=== PATIENT | female | born 1975 ===

== ENCOUNTER 2020-03-24 17:08 | Outpatient (CLI) | payer OTHER ==
[2020-03-24 17:31] VITALS: BP 122/74
[2020-03-24 19:17] LABS: Basophils % (Auto) 0.4 % (0.0-1.8); Eosinophils # (Auto) 0.1 K/mm3 (0.0-0.4); Eosinophils % (Auto) 0.9 % (0.0-4.3); Hematocrit 38.1 % (30.3-42.9); Lymphocytes # (Auto) 1.7 K/mm3 (1.2-5.4); Lymphocytes % (Auto) 16.3 % (13.4-35.0); Mean Corpuscular HGB Conc 34 % (30-34); Mean Corpuscular Volume 90 fl (79-97); Monocytes # (Auto) 0.6 K/mm3 (0.0-0.8); Monocytes % (Auto) 5.6 % (0.0-7.3); Platelet Count 325 K/mm3 (140-440); Red Blood Count 4.23 M/mm3 (3.65-5.03); Red Cell Distribution Width 14.3 % (13.2-15.2)
[2020-03-24 19:41] LABS: Alanine Aminotransferase 14 units/L (7-56); Albumin 3.4 g/dL (3.9-5); BUN/Creatinine Ratio 23; Blood Urea Nitrogen 7 mg/dL (7-17); Calcium 9.6 mg/dL (8.4-10.2); Hemolysis Index 4
== END 2020-03-24 18:50 | disposition home or self-care (01) ==
LOC: APU 17:08 → TRG 17:08
PROVIDERS: ATTEND Obstetrics & Gynecology
DX: O13.2 Gestational [pregnancy-induced] hypertension without significant proteinuria, second trimester (principal); Z3A.26 26 weeks gestation of pregnancy
CPT/HCPCS: 36415; 59025; 80053; 84436; 84443; 85025

== ENCOUNTER 2020-06-15 08:44 | Inpatient (IN) | payer OTHER ==
--- NOTE | 2020-06-15 10:44 | History and Physical Report ---
History of Present Illness Date of examination: 06/15/20 Date of admission: 06/15/20 08:46 Chief complaint: Presents for a scheduled induction of labor History of present illness: Early entry to care, co-managed with [facility] due to AMA. course complicated by being a Carrier for Spinal Muscular Atrophy (partner is negative); and Polyhydramnios. 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 Family/Genetic History: none Social history: no significant social history, single - Obstetrical History Expected Date of Delivery: 06/21/20 Actual Gestation: 39 Week(s) 1 Day(s) : 6 Para: 5 Hx # Term Pregnancies: 5 Number of Living Children: 5 #1 Gender: Male year: 1,996 Method of Delivery: Vaginal Gestational age at delivery: 40 #2 Infant Gender: Male year: ,001 Method of Delivery: Vaginal Gestational age at delivery: 41 Complications: none #3 Infant Gender: Male year: ,003 Method of Delivery: Vaginal Gestational age at delivery: 39 #4 Gender: Male year: ,008 Method of Delivery: Vaginal Gestational age at delivery: 41 Complications: none #5 Gender: Male year: 2,009 Method of Delivery: Vaginal Gestational age at delivery: 37 Medications and Allergies Allergies Allergy/AdvReac Type Severity Reaction Status Date / Time No Known Allergies Allergy Verified 06/15/20 09:25 Home Medications Medication Instructions Recorded Confirmed Last Taken Type Docusate Sodium [Colace] 100 mg PO BID 06/15/20 06/15/20 06/15/20 08:00 History Vit-Fe Fumar-FA [ 1 tab PO QDAY 06/15/20 06/15/20 06/15/20 08:00 History Vitamin] Active Meds: Active Medications Acetaminophen (Tylenol) 650 mg PO Q4H PRN PRN Reason: Pain, Mild (1-3) Butorphanol Tartrate (Stadol) 2 mg IV Q2H PRN PRN Reason: Pain , Severe (7-10) Dinoprostone (Cervidil) 10 mg VG ONCE ONE Stop: 06/15/20 10:34 Ephedrine Sulfate (Ephedrine Sulfate) 10 mg IV Q2M PRN PRN Reason: Hypotension Lactated Ringer's (Lactated Ringers) 1,000 mls @ 125 mls/hr IV DIRECT DANY Oxytocin/Sodium Chloride (Pitocin/Ns 20 Unit/1000ml Drip) 20 units in 1,000 mls @ 125 mls/hr IV DIRECT DANY Ampicillin Sodium (Ampicillin/Ns 1 Gm/50 Ml) 1 gm in 50 mls @ 100 mls/hr IV Q4HR DANY; Protocol Ampicillin Sodium (Ampicillin/Ns 2 Gm/100 Ml) 2 gm in 100 mls @ 100 mls/hr IV ONCE ONE; Protocol Stop: 06/15/20 11:32 Lidocaine (Xylocaine 2%) 20 ml INFILTRATI ONCE ONE Stop: 06/15/20 10:34 Mineral Oil (Mineral Oil) 30 ml PO QHS PRN PRN Reason: Constipation Misoprostol (Cytotec) 1,000 mcg UT ONCE PRN PRN Reason: Uterine Bleeding Naloxone HCl (Naloxone) 0.1 mg IV Q2MIN PRN PRN Reason: Res Rate </= 8 or 02 SAT < 92% Terbutaline Sulfate (Brethine) 0.25 mg SUB-Q ONCE PRN PRN Reason: Hyperstimulation/Hypertonicity Review of Systems All systems: negative - Vital Signs Vital signs: Vital Signs Temp Pulse BP 99.7 F H 88 129/74 06/15/20 09:25 06/15/20 09:25 06/15/20 09:25 Temp Pulse Resp BP Pulse Ox 99.7 F H 88 129/74 06/15/20 09:25 06/15/20 09:25 06/15/20 09:25 - Physical Exam Breasts: Positive: normal Cardiovascular: Regular rate Lungs: Positive: Clear to auscultation, Normal air movement Abdomen: Positive: normal appearance, soft, normal bowel sounds Genitourinary (Female): Positive: normal external genitalia, normal perenium Vagina: Positive: normal moisture Uterus: Positive: enlarged Anus/Rectum: Positive: normal perianal skin Extremities: Positive: normal - Obstetrical FHR: category 1 Uterine Contraction Monitor Mode: External Cervical Dilatation: 1 Cervical Effacement Percentage: 20 station: -3 Uterine Contraction Pattern: Absent Uterine Tone Measurement Phase: Resting Uterine Contraction Intensity: Mild Results All other labs normal. Assessment and Plan A: IUP @ 39 1/7 Weeks Category I Tracing AMA GBS Positive P: Admit to L&D Per Routine Orders Cervidil Induction GBS Prophylaxis
[2020-06-15] MEDS ORDERED: MINERAL OIL 30 ML ORAL LIQD PO PRN (11:00)
[2020-06-15] MEDS ORDERED: DINOPROSTONE 10 MG VAG SUPP VG SCH (11:30)
[2020-06-15] MEDS ORDERED: ACETAMINOPHEN 325 MG TAB PO PRN (11:30)
[2020-06-15] MEDS ORDERED: ePHEDrine SULFATE 50 MG/1 ML INJ IV PRN (11:30)
[2020-06-15] MEDS ORDERED: NALOXONE 0.4 MG/1 ML INJ IV PRN (11:30)
[2020-06-15] MEDS ORDERED: miSOPROStol 200 MCG TAB PR PRN (11:30)
[2020-06-15] MEDS ORDERED: LIDOCAINE (2%) 20 MG/1 ML VIAL 20 ML MDV INFILTRATI SCH (11:30)
[2020-06-15] MEDS ORDERED: TERBUTALINE 1 MG/1 ML INJ SUB-Q PRN (11:30)
[2020-06-15] MEDS ORDERED: BUTORPHANOL 2 MG/1 ML INJ IV PRN (11:30)
[2020-06-15] MEDS ORDERED: AMPICILLIN/NS 2 GM/100 ML 2 GM/100 ML BAG IV ONE (12:00)
[2020-06-15 12:16] LABS: Hematocrit 39.8 % (30.3-42.9); Hemoglobin 13.5 gm/dl (10.1-14.3); Mean Corpuscular HGB Conc 34 % (30-34); Mean Corpuscular Volume 92 fl (79-97); Platelet Count 316 K/mm3 (140-440); Red Blood Count 4.31 M/mm3 (3.65-5.03); Red Cell Distribution Width 14.1 % (13.2-15.2)
[2020-06-15] MEDS: LACTATED RINGERS 1,000 ML IV SCH (12:37)
[2020-06-15] MEDS: AMPICILLIN/NS 1 GM/50 ML 1 GM/50 ML BAG IV SCH ×2 (16:20→20:18)
--- NOTE | 2020-06-16 00:51 | Progress Note ---
Assessment and Plan A: IUP @ 39 2/7 Weeks Category I Tracing AMA GBS Positive P: Cervidil Removed Cook's Cervical Ripening Balloon Palced Continue GBS Prophylaxis Start Low-Dose Pitocin Subjective - Subjective Date of service: 06/16/20 Interval history: Early entry to care, co-managed with [facility] due to AMA. course complicated by being a Carrier for Spinal Muscular Atrophy (partner is negative); and Polyhydramnios. Patient reports: movement normal Objective - Vital Signs Vital Signs: Vital Signs - 12hr 06/15/20 06/15/20 06/15/20 13:14 13:51 15:15 Temperature 99.5 F Pulse Rate 83 78 Respiratory Rate Blood Pressure 99/58 100/59 Blood Pressure [Right] O2 Sat by Pulse Oximetry 06/15/20 06/15/20 06/15/20 16:14 16:25 17:25 Temperature 98.4 F Pulse Rate 81 78 Respiratory Rate Blood Pressure 98/58 114/77 Blood Pressure [Right] O2 Sat by Pulse Oximetry 06/15/20 06/15/20 06/15/20 17:27 17:32 17:37 Temperature Pulse Rate 84 84 80 Respiratory Rate Blood Pressure Blood Pressure [Right] O2 Sat by Pulse 99 100 100 Oximetry 06/15/20 06/15/20 06/15/20 17:42 17:47 17:52 Temperature Pulse Rate 84 76 80 Respiratory Rate Blood Pressure Blood Pressure [Right] O2 Sat by Pulse 100 100 100 Oximetry 06/15/20 06/15/20 06/15/20 17:57 18:02 18:07 Temperature Pulse Rate 80 76 82 Respiratory Rate Blood Pressure Blood Pressure [Right] O2 Sat by Pulse 99 98 98 Oximetry 06/15/20 06/15/20 06/15/20 18:12 18:15 18:17 Temperature Pulse Rate 83 75 80 Respiratory Rate Blood Pressure 105/68 Blood Pressure [Right] O2 Sat by Pulse 98 99 Oximetry 06/15/20 06/15/20 06/15/20 18:22 18:27 18:32 Temperature Pulse Rate 80 79 83 Respiratory Rate Blood Pressure Blood Pressure [Right] O2 Sat by Pulse 99 99 99 Oximetry 06/15/20 06/15/20 06/15/20 18:37 18:42 18:47 Temperature Pulse Rate 79 77 80 Respiratory Rate Blood Pressure Blood Pressure [Right] O2 Sat by Pulse 100 99 99 Oximetry 06/15/20 06/15/20 06/15/20 18:52 18:57 19:02 Temperature Pulse Rate 81 85 78 Respiratory Rate Blood Pressure Blood Pressure [Right] O2 Sat by Pulse 98 99 99 Oximetry 06/15/20 06/15/20 06/15/20 19:07 19:12 19:15 Temperature Pulse Rate 82 75 75 Respiratory Rate Blood Pressure 118/74 Blood Pressure [Right] O2 Sat by Pulse 99 99 Oximetry 06/15/20 06/15/20 06/15/20 19:17 19:22 19:27 Temperature Pulse Rate 88 77 78 Respiratory Rate Blood Pressure Blood Pressure [Right] O2 Sat by Pulse 98 98 98 Oximetry 06/15/20 06/15/20 06/15/20 19:32 19:37 19:42 Temperature Pulse Rate 75 77 85 Respiratory Rate Blood Pressure Blood Pressure [Right] O2 Sat by Pulse 98 99 99 Oximetry 06/15/20 06/15/20 06/15/20 19:47 19:52 19:57 Temperature Pulse Rate 77 75 88 Respiratory Rate Blood Pressure Blood Pressure [Right] O2 Sat by Pulse 98 100 99 Oximetry 06/15/20 06/15/20 06/15/20 20:02 20:07 20:21 Temperature 98.6 F Pulse Rate 82 77 76 Respiratory 16 Rate Blood Pressure Blood Pressure 113/71 [Right] O2 Sat by Pulse 99 99 98 Oximetry 06/15/20 06/15/20 06/15/20 20:22 20:26 20:31 Temperature Pulse Rate 77 82 74 Respiratory Rate Blood Pressure 113/71 Blood Pressure [Right] O2 Sat by Pulse 98 98 Oximetry 06/15/20 06/15/20 06/15/20 20:36 20:41 20:46 Temperature Pulse Rate 77 84 86 Respiratory Rate Blood Pressure Blood Pressure [Right] O2 Sat by Pulse 98 99 97 Oximetry 06/15/20 06/15/20 06/15/20 20:51 20:56 21:01 Temperature Pulse Rate 81 89 98 H Respiratory Rate Blood Pressure Blood Pressure [Right] O2 Sat by Pulse 100 98 99 Oximetry 06/15/20 06/15/20 06/15/20 21:06 21:11 21:16 Temperature Pulse Rate 83 86 84 Respiratory Rate Blood Pressure 119/63 Blood Pressure [Right] O2 Sat by Pulse 98 98 98 Oximetry 06/15/20 06/15/20 06/15/20 21:21 21:26 21:31 Temperature Pulse Rate 74 79 83 Respiratory Rate Blood Pressure Blood Pressure [Right] O2 Sat by Pulse 98 98 98 Oximetry 06/15/20 06/15/20 06/15/20 21:36 21:41 21:46 Temperature Pulse Rate 83 79 77 Respiratory Rate Blood Pressure Blood Pressure [Right] O2 Sat by Pulse 98 97 97 Oximetry 06/15/20 06/15/20 06/15/20 21:51 21:56 22:01 Temperature Pulse Rate 75 76 79 Respiratory Rate Blood Pressure Blood Pressure [Right] O2 Sat by Pulse 97 97 98 Oximetry 06/15/20 06/15/20 06/15/20 22:06 22:11 22:16 Temperature Pulse Rate 79 84 82 Respiratory Rate Blood Pressure 135/67 Blood Pressure [Right] O2 Sat by Pulse 97 97 100 Oximetry 06/15/20 06/15/20 06/15/20 22:21 22:26 22:31 Temperature Pulse Rate 79 71 73 Respiratory Rate Blood Pressure Blood Pressure [Right] O2 Sat by Pulse 99 99 98 Oximetry 06/15/20 06/15/20 06/15/20 22:36 22:41 22:46 Temperature Pulse Rate 71 70 70 Respiratory Rate Blood Pressure Blood Pressure [Right] O2 Sat by Pulse 97 98 97 Oximetry 06/15/20 06/15/20 06/15/20 22:51 22:56 23:01 Temperature Pulse Rate 74 73 71 Respiratory Rate Blood Pressure Blood Pressure [Right] O2 Sat by Pulse 97 97 97 Oximetry 06/15/20 06/15/20 06/15/20 23:06 23:11 23:14 Temperature Pulse Rate 75 84 74 Respiratory Rate Blood Pressure 103/65 Blood Pressure [Right] O2 Sat by Pulse 97 97 Oximetry 06/15/20 06/15/20 06/15/20 23:16 23:21 23:26 Temperature Pulse Rate 82 74 87 Respiratory Rate Blood Pressure Blood Pressure [Right] O2 Sat by Pulse 98 98 98 Oximetry 06/15/20 06/15/20 06/15/20 23:31 23:39 23:44 Temperature Pulse Rate 80 79 80 Respiratory Rate Blood Pressure Blood Pressure [Right] O2 Sat by Pulse 99 100 99 Oximetry 06/15/20 06/15/20 06/15/20 23:49 23:54 23:59 Temperature Pulse Rate 77 82 78 Respiratory Rate Blood Pressure Blood Pressure [Right] O2 Sat by Pulse 99 99 100 Oximetry 06/16/20 06/16/20 06/16/20 00:04 00:09 00:14 Temperature Pulse Rate 74 72 72 Respiratory Rate Blood Pressure 110/59 Blood Pressure [Right] O2 Sat by Pulse 99 98 98 Oximetry 06/16/20 06/16/20 06/16/20 00:19 00:24 00:29 Temperature Pulse Rate 86 82 81 Respiratory Rate Blood Pressure Blood Pressure [Right] O2 Sat by Pulse 99 99 100 Oximetry 06/16/20 06/16/20 06/16/20 00:34 00:39 00:44 Temperature Pulse Rate 81 85 88 Respiratory Rate Blood Pressure Blood Pressure [Right] O2 Sat by Pulse 99 98 98 Oximetry - Exam Breasts: normal Cardiovascular: Regular rate Lungs: Clear to auscultation, Normal air movement Abdomen: Present: normal appearance, soft Uterus: Present: normal, firm, fundal height above umbilicus FHR: category 1 Uterine Contraction Monitor Mode: External Cervical Dilatation: 2 Cervical Effacement Percentage: 40 station: -3 Uterine Contraction Pattern: Irregular Uterine Tone Measurement Phase: Resting Uterine Contraction Intensity: Mild Extremities: normal - Labs Labs: Abnormal Labs 06/15/20 12:00 WBC 11.5 H Laboratory Results - last 24 hr 06/15/20 06/15/20 12:00 12:00 WBC 11.5 H RBC 4.31 Hgb 13.5 Hct 39.8 MCV 92 MCH 31 MCHC 34 RDW 14.1 Plt Count 316 Blood Type A POSITIVE Antibody Screen Negative
[2020-06-16] MEDS: AMPICILLIN/NS 1 GM/50 ML 1 GM/50 ML BAG IV SCH ×3 (01:20→18:42)
[2020-06-16] MEDS ORDERED: OXYTOCIN DRIP 30,000 MILLIUNITS/500 ML BAG IV ONE (02:05)
[2020-06-16] MEDS ORDERED: OXYTOCIN DRIP 30 UNITS/500 ML BAG IV SCH (02:10)
[2020-06-16] MEDS: LACTATED RINGERS 1,000 ML IV SCH ×2 (05:36→17:28)
--- NOTE | 2020-06-16 09:01 | Progress Note ---
Assessment and Plan A: IUP@ 39.2 wks AMA. + GBS Polyhydramnios p: Continue monitoring Continue GBS prophylaxis AROM (clear fluid) Anticipate Subjective - Subjective Date of service: 06/16/20 Principal diagnosis: IUP @ 39.2 wks Patient reports: movement normal Objective - Vital Signs Vital Signs: Vital Signs - 12hr 06/15/20 06/15/20 06/15/20 20:56 21:01 21:06 Temperature Pulse Rate 89 98 H 83 Respiratory Rate Blood Pressure O2 Sat by Pulse 98 99 98 Oximetry 06/15/20 06/15/20 06/15/20 21:11 21:16 21:21 Temperature Pulse Rate 86 84 74 Respiratory Rate Blood Pressure 119/63 O2 Sat by Pulse 98 98 98 Oximetry 06/15/20 06/15/20 06/15/20 21:26 21:31 21:36 Temperature Pulse Rate 79 83 83 Respiratory Rate Blood Pressure O2 Sat by Pulse 98 98 98 Oximetry 06/15/20 06/15/20 06/15/20 21:41 21:46 21:51 Temperature Pulse Rate 79 77 75 Respiratory Rate Blood Pressure O2 Sat by Pulse 97 97 97 Oximetry 06/15/20 06/15/20 06/15/20 21:56 22:01 22:06 Temperature Pulse Rate 76 79 79 Respiratory Rate Blood Pressure O2 Sat by Pulse 97 98 97 Oximetry 06/15/20 06/15/20 06/15/20 22:11 22:16 22:21 Temperature Pulse Rate 84 82 79 Respiratory Rate Blood Pressure 135/67 O2 Sat by Pulse 97 100 99 Oximetry 06/15/20 06/15/20 06/15/20 22:26 22:31 22:36 Temperature Pulse Rate 71 73 71 Respiratory Rate Blood Pressure O2 Sat by Pulse 99 98 97 Oximetry 06/15/20 06/15/20 06/15/20 22:41 22:46 22:51 Temperature Pulse Rate 70 70 74 Respiratory Rate Blood Pressure O2 Sat by Pulse 98 97 97 Oximetry 06/15/20 06/15/20 06/15/20 22:56 23:01 23:06 Temperature Pulse Rate 73 71 75 Respiratory Rate Blood Pressure O2 Sat by Pulse 97 97 97 Oximetry 06/15/20 06/15/20 06/15/20 23:11 23:14 23:16 Temperature Pulse Rate 84 74 82 Respiratory Rate Blood Pressure 103/65 O2 Sat by Pulse 97 98 Oximetry 06/15/20 06/15/20 06/15/20 23:21 23:26 23:31 Temperature Pulse Rate 74 87 80 Respiratory Rate Blood Pressure O2 Sat by Pulse 98 98 99 Oximetry 06/15/20 06/15/20 06/15/20 23:39 23:44 23:49 Temperature Pulse Rate 79 80 77 Respiratory Rate Blood Pressure O2 Sat by Pulse 100 99 99 Oximetry 06/15/20 06/15/20 06/16/20 23:54 23:59 00:04 Temperature Pulse Rate 82 78 74 Respiratory Rate Blood Pressure O2 Sat by Pulse 99 100 99 Oximetry 06/16/20 06/16/20 06/16/20 00:09 00:14 00:19 Temperature Pulse Rate 72 72 86 Respiratory Rate Blood Pressure 110/59 O2 Sat by Pulse 98 98 99 Oximetry 06/16/20 06/16/20 06/16/20 00:24 00:29 00:34 Temperature Pulse Rate 82 81 81 Respiratory Rate Blood Pressure O2 Sat by Pulse 99 100 99 Oximetry 06/16/20 06/16/20 06/16/20 00:39 00:44 00:49 Temperature Pulse Rate 85 88 80 Respiratory Rate Blood Pressure O2 Sat by Pulse 98 98 99 Oximetry 06/16/20 06/16/20 06/16/20 00:54 00:59 01:04 Temperature Pulse Rate 83 78 82 Respiratory Rate Blood Pressure O2 Sat by Pulse 99 98 98 Oximetry 06/16/20 06/16/20 06/16/20 01:09 01:14 01:19 Temperature Pulse Rate 77 85 74 Respiratory Rate Blood Pressure O2 Sat by Pulse 99 100 100 Oximetry 06/16/20 06/16/20 06/16/20 01:24 01:29 01:34 Temperature Pulse Rate 81 74 76 Respiratory Rate Blood Pressure O2 Sat by Pulse 100 99 99 Oximetry 06/16/20 06/16/20 06/16/20 01:39 01:44 01:49 Temperature Pulse Rate 74 75 75 Respiratory Rate Blood Pressure O2 Sat by Pulse 99 99 99 Oximetry 06/16/20 06/16/20 06/16/20 01:54 01:59 02:04 Temperature Pulse Rate 77 77 73 Respiratory Rate Blood Pressure O2 Sat by Pulse 99 99 100 Oximetry 06/16/20 06/16/20 06/16/20 02:09 02:14 02:15 Temperature Pulse Rate 76 75 70 Respiratory Rate Blood Pressure 113/81 O2 Sat by Pulse 99 98 Oximetry 06/16/20 06/16/20 06/16/20 02:30 02:35 02:40 Temperature Pulse Rate 71 73 78 Respiratory Rate Blood Pressure O2 Sat by Pulse 98 97 98 Oximetry 06/16/20 06/16/20 06/16/20 02:45 02:50 02:55 Temperature Pulse Rate 75 83 72 Respiratory Rate Blood Pressure O2 Sat by Pulse 98 98 98 Oximetry 06/16/20 06/16/20 06/16/20 03:00 03:05 03:10 Temperature Pulse Rate 68 72 80 Respiratory Rate Blood Pressure O2 Sat by Pulse 97 98 99 Oximetry 06/16/20 06/16/20 06/16/20 03:14 03:15 03:22 Temperature Pulse Rate 76 81 75 Respiratory Rate Blood Pressure 106/67 O2 Sat by Pulse 98 100 Oximetry 06/16/20 06/16/20 06/16/20 03:27 03:32 03:37 Temperature Pulse Rate 68 76 82 Respiratory Rate Blood Pressure O2 Sat by Pulse 99 99 97 Oximetry 06/16/20 06/16/20 06/16/20 03:42 03:47 03:52 Temperature Pulse Rate 76 91 H 79 Respiratory Rate Blood Pressure O2 Sat by Pulse 100 99 100 Oximetry 06/16/20 06/16/20 06/16/20 03:57 04:02 04:07 Temperature Pulse Rate 80 78 76 Respiratory Rate Blood Pressure O2 Sat by Pulse 100 100 100 Oximetry 06/16/20 06/16/20 06/16/20 04:12 04:14 04:17 Temperature Pulse Rate 77 67 67 Respiratory Rate Blood Pressure 110/71 O2 Sat by Pulse 99 99 Oximetry 06/16/20 06/16/20 06/16/20 04:22 04:27 04:32 Temperature Pulse Rate 69 76 86 Respiratory Rate Blood Pressure O2 Sat by Pulse 99 99 98 Oximetry 06/16/20 06/16/20 06/16/20 04:35 04:37 04:42 Temperature Pulse Rate 70 70 Respiratory 20 Rate Blood Pressure O2 Sat by Pulse 98 94 Oximetry 06/16/20 06/16/20 06/16/20 04:46 04:47 04:52 Temperature Pulse Rate 66 65 64 Respiratory Rate Blood Pressure O2 Sat by Pulse 94 95 96 Oximetry 06/16/20 06/16/20 06/16/20 04:54 04:57 05:01 Temperature Pulse Rate 64 70 71 Respiratory Rate Blood Pressure O2 Sat by Pulse 94 96 94 Oximetry 06/16/20 06/16/20 06/16/20 05:02 05:07 05:12 Temperature Pulse Rate 61 65 68 Respiratory Rate Blood Pressure O2 Sat by Pulse 96 95 96 Oximetry 06/16/20 06/16/20 06/16/20 05:14 05:17 05:20 Temperature Pulse Rate 68 67 79 Respiratory Rate Blood Pressure 108/65 O2 Sat by Pulse 95 92 Oximetry 06/16/20 06/16/20 06/16/20 05:22 05:27 05:32 Temperature Pulse Rate 62 68 67 Respiratory Rate Blood Pressure O2 Sat by Pulse 95 95 96 Oximetry 06/16/20 06/16/20 06/16/20 05:37 05:41 05:42 Temperature Pulse Rate 68 63 66 Respiratory Rate Blood Pressure O2 Sat by Pulse 97 94 96 Oximetry 06/16/20 06/16/20 06/16/20 05:47 05:50 05:52 Temperature Pulse Rate 71 72 67 Respiratory Rate Blood Pressure O2 Sat by Pulse 96 94 98 Oximetry 06/16/20 06/16/20 06/16/20 05:57 06:02 06:07 Temperature Pulse Rate 69 66 79 Respiratory Rate Blood Pressure O2 Sat by Pulse 96 96 96 Oximetry 06/16/20 06/16/20 06/16/20 06:12 06:15 06:17 Temperature Pulse Rate 71 74 69 Respiratory Rate Blood Pressure 112/62 O2 Sat by Pulse 96 100 Oximetry 06/16/20 06/16/20 06/16/20 06:22 06:27 06:32 Temperature Pulse Rate 69 74 65 Respiratory Rate Blood Pressure O2 Sat by Pulse 98 98 97 Oximetry 06/16/20 06/16/20 06/16/20 06:37 06:42 06:47 Temperature Pulse Rate 65 64 68 Respiratory Rate Blood Pressure O2 Sat by Pulse 97 97 99 Oximetry 06/16/20 06/16/20 06/16/20 06:52 06:57 07:02 Temperature Pulse Rate 68 71 75 Respiratory Rate Blood Pressure O2 Sat by Pulse 98 97 98 Oximetry 06/16/20 06/16/20 06/16/20 07:07 07:12 07:14 Temperature 98.6 F Pulse Rate 77 71 69 Respiratory Rate Blood Pressure 114/74 O2 Sat by Pulse 100 100 Oximetry 06/16/20 06/16/20 06/16/20 07:17 07:22 07:27 Temperature Pulse Rate 69 83 82 Respiratory Rate Blood Pressure O2 Sat by Pulse 100 98 99 Oximetry 06/16/20 06/16/20 06/16/20 07:32 07:37 07:42 Temperature Pulse Rate 62 62 68 Respiratory Rate Blood Pressure O2 Sat by Pulse 99 98 99 Oximetry 06/16/20 06/16/20 06/16/20 07:47 07:52 07:57 Temperature Pulse Rate 60 66 74 Respiratory Rate Blood Pressure O2 Sat by Pulse 98 99 98 Oximetry 06/16/20 06/16/20 06/16/20 08:02 08:08 08:13 Temperature Pulse Rate 71 76 73 Respiratory Rate Blood Pressure O2 Sat by Pulse 100 100 100 Oximetry 06/16/20 06/16/20 06/16/20 08:14 08:18 08:23 Temperature Pulse Rate 73 70 79 Respiratory Rate Blood Pressure 114/72 O2 Sat by Pulse 99 98 Oximetry 06/16/20 06/16/20 06/16/20 08:28 08:33 08:38 Temperature Pulse Rate 69 73 74 Respiratory Rate Blood Pressure O2 Sat by Pulse 99 99 99 Oximetry 06/16/20 06/16/20 06/16/20 08:43 08:48 08:53 Temperature Pulse Rate 72 77 77 Respiratory Rate Blood Pressure O2 Sat by Pulse 99 100 99 Oximetry - Exam Breasts: normal Abdomen: Present: normal appearance, soft, other (gravid) Vulva: both: normal Uterus: Present: normal, other (gravid) FHR: category 1 Uterine Contraction Monitor Mode: External Cervical Dilatation: 5 Cervical Effacement Percentage: 50 station: -3 Uterine Contraction Frequency (min): q5-6 Uterine Contraction Pattern: Regular Uterine Tone Measurement Phase: Resting Uterine Contraction Intensity: Strong/Firm Extremities: normal - Labs Labs: Abnormal Labs 06/15/20 12:00 WBC 11.5 H Laboratory Results - last 24 hr 06/15/20 06/15/20 12:00 12:00 WBC 11.5 H RBC 4.31 Hgb 13.5 Hct 39.8 MCV 92 MCH 31 MCHC 34 RDW 14.1 Plt Count 316 Blood Type A POSITIVE Antibody Screen Negative
[2020-06-16] MEDS ORDERED: ePHEDrine SULFATE 50 MG/1 ML INJ IV PRN (10:12)
[2020-06-16] MEDS ORDERED: NALOXONE 2 MG/2 ML INJ IV PRN (10:12)
--- NOTE | 2020-06-16 10:12 | Anesthesia Consultation ---
Anesthesia Consult and Med Hx Date of service: 06/16/20 - Airway Anesthetic Teeth Evaluation: Good ROM Head & Neck: Adequate Mental/Hyoid Distance: Adequate Mallampati Class: Class II Intubation Access Assessment: Probably Good - Pulmonary Exam CTA: Yes - Cardiac Exam Cardiac Exam: RRR - Pre-Operative Health Status ASA Pre-Surgery Classification: ASA2 Proposed Anesthetic Plan: Epidural - Pulmonary Hx Asthma: No - Cardiovascular System Hx Hypertension: No - Central Nervous System Hx Seizures: No Hx Psychiatric Problems: No - Endocrine Hx Renal Disease: No Hx Hypothyroidism: No Hx Hyperthyroidism: No - Hematic Hx Anemia: No Hx Sickle Cell Disease: No - Other Systems Hx Alcohol Use: No
--- NOTE | 2020-06-16 11:12 | Progress Note ---
Labor Epidural - Labor Epidural Start Time: 11:05 Stop Time: 11:11 Performed by:: PEREZ MONTES Procedure: Patient is requesting epidural for labor pain. H&P, and labs reviewed. Procedure explained, questions answered, consent obtained. Patient in sitting position with blood pressure cuff and pulse ox on and working. Timeout performed immediately before start of procedure. Sterile betadine prep/drape. 3 mL 1% lidocaine skin wheal at L[3]-L[4]. 18-gauge Touhy epidural needle advanced to [id number] with saline at [7] cm. 27-gauge spinal needle advanced until clear, free-flowing CSF. Intrathecal dexmedetomidine [5] mcg administered and needle removed. Epidural catheter advanced to [12] cm, negative aspiration for blood and csf, negative test dose 3 ml 1.5% lidocaine with epinephrine. Sterile steri-strips and tegaderm applied, followed by tape reinforcement. Patient tolerated procedure well. Debbie PURCELL
[2020-06-16] MEDS: fentaNYL-BUPIV 2 MCG/ML-0.125% 200 MCG/100 ML BAG EPIDURAL SCH ×2 (13:54→21:10)
[2020-06-16] MEDS ORDERED: OXYTOCIN 10 UNIT/1 ML INJ ONE ×2 (21:07→21:09)
[2020-06-16] MEDS: OXYTOCIN 20 UNIT/1000ML DRIP 20 UNITS/1,000 ML BAG IV SCH ×2 (21:42→22:31)
[2020-06-16] MEDS ORDERED: ONDANSETRON 4 MG/2 ML INJ IV PRN (22:19)
[2020-06-16] MEDS ORDERED: diphenhydrAMINE 25 MG CAP PO PRN (22:19)
[2020-06-16] MEDS ORDERED: WITCH HAZEL/ GLYCERIN PAD TP PRN (22:19)
[2020-06-16] MEDS ORDERED: PROMETHAZINE 25 MG RECT SUPP PR PRN (22:19)
[2020-06-16] MEDS ORDERED: MAGNESIUM HYDROXIDE (MOM) ORAL LIQD UDC PO PRN (22:19)
[2020-06-16] MEDS ORDERED: PROMETHAZINE 25 MG TAB PO PRN (22:19)
[2020-06-16] MEDS ORDERED: LANOLIN/ZINC/DIMETHICONE (LANSINOH) 7 GM TP PRN (22:19)
--- NOTE | 2020-06-16 22:29 | Procedure Note ---
OB Delivery Note - Vaginal Delivery presentation: vertex Delivery position: OA Delivery induction: oxytocin Delivery augmentation: rupture of membranes, pitocin Delivery monitor: external FHT, external uterine, internal uterine Route of delivery: Delivery placenta: spontaneous Delivery cord: 3 umbilical vessels Episiotomy: none Delivery laceration: none Anesthesia: epidural Delivery comments: Called to rm and found pt fully dilated and pushing. of a viable live female infant in OA position. 's head and shoulders were delivered with ease. Baby was placed on mom's chest while being dried and stimulated. Delayed cord clamping x 90 sec then cord was clamped x 2 and cut by mom's niece. Afterwards infant was given to awaiting NICU nurse for an evaluation. 8/9. Spontaneous delivery of intact placenta with CVX3 noted. FF@ U1 with fundal massage and IV Pitocin. Exploration of tears revealed none. EBL 50cc. Mom and baby stable. wt 3434 Gms. - A at 1 minute: 8 at 5 minutes: 9 Gender: Female (FW 3434 Gms)
[2020-06-17] MEDS: IBUPROFEN 600 MG TAB PO SCH ×2 (07:51→23:52)
[2020-06-17] MEDS ORDERED: PRENATAL VIT27-FE FUMARATE-FOLIC ACID VIT TAB PO SCH (10:00)
--- NOTE | 2020-06-17 10:26 | Progress Note ---
Assessment and Plan - Patient Problems (1) Status post normal vaginal delivery Current Visit: Yes Status: Acute Plan to address problem: Continue routine PP orders Anticipate d/c home in AM F/U at office in 6 wks for routine PP visit Subjective - Subjective Date of service: 06/17/20 Principal diagnosis: S/P ; PPD #1 Interval history: See admission H & P; OB delivery summary and PP progress notes Patient reports: appetite normal, voiding normally, pain well controlled, flatus, ambulating normally [place]: doing well, bottle feeding (and ) Objective - Vital Signs Latest vital signs: Vital Signs Temp Pulse Resp BP BP Pulse Ox 06/17/20 08:48 97.6 F 77 18 102/68 99 06/17/20 05:55 97.5 F L 76 18 82/53 96 06/16/20 23:37 99.8 F H 96 H 20 103/63 98 06/16/20 23:08 100 H 98 06/16/20 23:05 100 H 97/68 06/16/20 23:03 100 H 98 06/16/20 22:58 105 H 97 06/16/20 22:53 99 H 97 06/16/20 22:50 98/62 06/16/20 22:48 96 H 93 06/16/20 22:43 92 H 99 06/16/20 22:38 95 H 99 06/16/20 22:35 90 108/57 06/16/20 22:33 89 98 06/16/20 22:28 87 98 06/16/20 22:23 87 99 06/16/20 22:21 88 102/59 06/16/20 22:18 57 L 100 06/16/20 22:16 94 H 92 06/16/20 22:13 84 99 06/16/20 22:08 106 H 96 06/16/20 22:07 95 H 92 06/16/20 22:03 83 100 06/16/20 22:00 99 H 94 06/16/20 21:58 89 98 06/16/20 21:53 102 H 98 06/16/20 21:51 88 115/69 06/16/20 21:48 91 H 98 06/16/20 21:43 86 99 06/16/20 21:39 92 H 89 06/16/20 21:38 93 H 100 09/10/20 21:34 88 92 09/10/20 21:33 82 100 09/10/20 21:28 89 100 09/10/20 21:27 85 92 09/1020 21:23 84 100 1020 21:18 89 98 /10/20 21:13 81 100 1020 21:08 70 100 1020 21:03 86 99 1020 20:58 91 H 100 1020 20:53 89 100 1020 20:48 79 90/53 100 1020 20:43 87 100 1020 20:38 84 97 10/20 20:33 86 99/55 100 1020 20:28 77 100 20 20:23 80 100 20 20:18 81 100 1020 20:17 81 105/63 091020 20:13 90 100 20 20:08 93 H 100 20 20:03 84 104/56 100 20 19:58 85 99 1020 19:53 86 100 20 19:49 93 H 101/58 20 19:48 85 99 1020 19:43 82 100 20 19:38 86 99 20 19:33 80 100/58 98 1020 19:28 88 99 1020 19:23 85 99 1020 19:18 86 103/57 99 1020 19:13 82 99 1020 19:08 87 99 1020 19:03 88 89/53 98 1020 18:58 82 99 /1020 18:53 85 100 /10/20 18:48 85 101/61 99 1020 18:43 81 100 1020 18:38 87 100 1020 18:33 82 100 1020 18:32 78 102/57 1020 18:28 89 100 1020 18:23 75 99 1020 18:18 82 100 1020 18:17 78 102/58 20 18:13 82 100 06/16/20 18:08 80 100 06/16/20 18:03 82 100 06/16/20 18:02 80 107/59 06/16/20 17:58 83 100 06/16/20 17:53 78 100 06/16/20 17:48 83 106/58 100 06/16/20 17:43 76 100 06/16/20 17:38 85 100 06/16/20 17:33 79 100 06/16/20 17:32 71 109/71 06/16/20 17:30 97.7 F 20 100 06/16/20 17:28 75 100 06/16/20 17:23 76 100 06/16/20 17:18 78 100 06/16/20 17:17 68 108/66 06/16/20 17:13 70 100 06/16/20 17:08 68 100 06/16/20 17:03 71 108/67 100 06/16/20 16:58 73 100 06/16/20 16:53 71 100 06/16/20 16:48 74 109/71 100 06/16/20 16:43 64 100 06/16/20 16:38 65 100 06/16/20 16:33 68 100 06/16/20 16:32 75 108/61 06/16/20 16:28 69 100 06/16/20 16:23 67 100 06/16/20 16:18 65 111/65 100 06/16/20 16:13 64 100 06/16/20 16:08 68 100 06/16/20 16:03 67 104/55 100 06/16/20 15:58 72 100 06/16/20 15:53 63 100 06/16/20 15:48 70 90/55 100 06/16/20 15:43 66 100 06/16/20 15:38 80 100 06/16/20 15:33 61 100 06/16/20 15:32 68 97/58 06/16/20 15:28 71 100 06/16/20 15:23 72 100 06/16/20 15:18 66 100 06/16/20 15:17 70 98/59 06/16/20 15:13 66 100 06/16/20 15:08 76 99 06/16/20 15:03 69 97/62 100 06/16/20 14:58 77 100 06/16/20 14:53 67 100 06/16/20 14:50 97.6 F 06/16/20 14:49 71 103/57 06/16/20 14:48 74 99 06/16/20 14:43 68 98 06/16/20 14:38 77 99 06/16/20 14:33 76 100 06/16/20 14:32 69 102/59 06/16/20 14:28 73 100 06/16/20 14:23 67 100 06/16/20 14:18 74 100 06/16/20 14:17 75 98/58 06/16/20 14:13 72 100 06/16/20 14:08 74 100 06/16/20 14:03 77 100 06/16/20 14:02 68 100/59 06/16/20 13:58 76 100 06/16/20 13:53 74 100 06/16/20 13:48 70 100 06/16/20 13:47 75 97/62 06/16/20 13:43 60 100 06/16/20 13:38 73 100 06/16/20 13:33 71 102/65 100 06/16/20 13:28 76 100 06/16/20 13:23 76 100 06/16/20 13:18 79 100 06/16/20 13:17 84 103/65 06/16/20 13:13 75 100 06/16/20 13:08 73 100 06/16/20 13:03 77 100 06/16/20 13:02 73 101/62 06/16/20 12:58 78 100 06/16/20 12:53 74 100 06/16/20 12:48 79 100 06/16/20 12:47 77 100/56 06/16/20 12:43 73 100 06/16/20 12:38 71 100 06/16/20 12:33 78 100 06/16/20 12:32 75 99/54 06/16/20 12:28 76 100 06/16/20 12:23 75 100 06/16/20 12:18 77 98/56 100 06/16/20 12:13 83 100 06/16/20 12:08 84 100 06/16/20 12:03 82 100 06/16/20 12:00 83 92/50 06/16/20 11:58 83 97/56 100 06/16/20 11:56 82 91/55 06/16/20 11:54 82 93/52 06/16/20 11:53 86 100 06/16/20 11:52 104 H 94/52 06/16/20 11:50 86 92/51 06/16/20 11:48 88 95/53 100 06/16/20 11:46 85 94/60 06/16/20 11:44 85 94/57 06/16/20 11:43 78 100 06/16/20 11:42 77 94/56 06/16/20 11:40 81 93/57 06/16/20 11:38 81 89/55 100 06/16/20 11:36 83 91/55 06/16/20 11:35 81 95/52 06/16/20 11:33 71 100 06/16/20 11:32 69 105/58 06/16/20 11:30 68 109/57 06/16/20 11:28 74 101/61 99 06/16/20 11:26 73 101/60 06/16/20 11:25 75 105/61 06/16/20 11:23 78 99 06/16/20 11:22 74 89/50 06/16/20 11:20 80 103/65 06/16/20 11:18 72 110/68 100 06/16/20 11:16 75 113/66 06/16/20 11:14 82 121/74 06/16/20 11:13 77 100 06/16/20 11:12 77 119/72 06/16/20 11:10 76 127/76 06/16/20 11:08 77 126/75 100 06/16/20 11:06 78 133/75 06/16/20 11:04 81 128/74 06/16/20 11:03 87 100 06/16/20 11:02 91 H 118/69 Intake and Output 06/16/20 06/17/20 06/17/20 23:59 07:59 15:59 Intake Total 105.783 240 240 Output Total 1000 Balance 105.783 -760 240 Intake: IV 105.783 PITOCin/NS 20 UNIT/1000ML 102.083 DRIP 20 units In 1,000 ml @ 125 mls/hr IV DIRECT [facility] Rx#:[id number] PITOCin/NS 30 UNIT/500ML 3.7 30 units In 500 ml @ 2 mls/hr IV TITR [facility] Rx#: [id number] Oral 240 240 Output: Urine 1000 Void 1000 Other: Total, Intake Amount 240 240 Total, Output Amount 400 Estimated Blood Loss 50 - Exam Breasts: Present: normal Cardiovascular: Present: Regular rate Lungs: Present: Normal air movement Abdomen: Present: soft Uterus: Present: firm, fundal height below umbilicus (U-1) Extremities: Present: normal Deep Tendon Reflex Grade: Normal +2
--- NOTE | 2020-06-17 10:30 | Discharge Summary ---
Providers - Providers Date of Admission: 06/15/20 08:46 Date of discharge: 06/18/20 (0900) Attending physician: DOROTHY CONRAD Primary care physician: DOROTHY CONRAD Hospitalization Reason for admission: induction of labor (secondary to advanced [place] age) Delivery: Episiotomy: none Laceration: none complications: none Discharge diagnosis: IUP at term delivered [place] baby: female Hospital course: See admission H & P; OB delivery summary and PP progress notes Condition at discharge: Good Disposition: DC-01 TO HOME OR SELFCARE - Discharge Diagnoses (1) Status post normal vaginal delivery Status: Acute Plan - Provider Discharge Summary Activity: routine, no sex for 6 weeks, no heavy lifting 4 weeks, no strenuous exercise Diet: routine Instructions: routine Additional instructions: [] Smoking cessation referral if applicable(refer to patient education folder for contact #) [] Refer to [facility] Booklet Call your doctor immediately for: * Fever > 100.5 * Heavy vaginal bleeding ( >1 pad per hour) * Severe persistent headache * Shortness of breath * Reddened, hot, painful area to leg or breast - Follow up plan Follow up: DOROTHY CONRAD MD [Primary Care Provider] - 6 Weeks
[2020-06-17 14:17] LABS: Hematocrit 33.9 % (30.3-42.9); Hemoglobin 11.3 gm/dl (10.1-14.3)
--- NOTE | 2020-06-17 17:03 | Post Anesthesia Evaluation ---
- Post Anesthesia Evaluation Patient Participated: Yes Airway Patent: Yes Stable Respiratory Function: Yes Nausea/Vomiting: No Temp > 96.8F: Yes Pain Manageable: Yes Adequeate Hydration: Yes Anesthesia Complications: No Block Receding Appropriately: Yes
[2020-06-18 15:35] VITALS: BP 108/67
== END 2020-06-18 13:55 | disposition home or self-care (01) | DRG 807 ==
LOC: TRG 08:44 → LD 08:46 → OB 06-16 23:42
PROVIDERS: ADMIT Obstetrics & Gynecology; ATTEND Obstetrics & Gynecology
PROC: 10E0XZZ Delivery of Products of Conception, External Approach (ICD-10-PCS; principal; 2020-06-16)
PROC: 10907ZC Drainage of Amniotic Fluid, Therapeutic from Products of Conception, Via Natural or Artificial Opening (ICD-10-PCS; 2020-06-16)
PROC: 0U7C7ZZ Dilation of Cervix, Via Natural or Artificial Opening (ICD-10-PCS; 2020-06-16)
PROC: 3E0R3BZ Introduction of Anesthetic Agent into Spinal Canal, Percutaneous Approach (ICD-10-PCS; 2020-06-16)
PROC: 00HU33Z Insertion of Infusion Device into Spinal Canal, Percutaneous Approach (ICD-10-PCS; 2020-06-16)
PROC: 3E0P7VZ Introduction of Hormone into Female Reproductive, Via Natural or Artificial Opening (ICD-10-PCS; 2020-06-16)
PROC: 3E033VJ Introduction of Other Hormone into Peripheral Vein, Percutaneous Approach (ICD-10-PCS; 2020-06-16)
DX: O40.3XX0 Polyhydramnios, third trimester, not applicable or unspecified (principal); Z37.0 Single live birth; Z20.828 Contact with and (suspected) exposure to other viral communicable diseases; O99.344 Other mental disorders complicating childbirth; F32.9 Major depressive disorder, single episode, unspecified; Z3A.39 39 weeks gestation of pregnancy; O99.824 Streptococcus B carrier state complicating childbirth
CPT/HCPCS: 36415; 85014; 85018; 85027; 86850; 86900; 86901; G0378; J0290; J0595; J2590; J7120; U0003-CS